=== PATIENT | male | born 1985 | race Caucasian/White ===

== ENCOUNTER 2017-10-11 17:27 | Emergency (ER) | payer SELFPAY ==
[~2017-10-11] VITALS: Ht 165.1 cm; Wt 63.5 kg
[2017-10-11 17:35] VITALS: BP_SYST 115
[2017-10-11] MEDS ORDERED: BACITRACIN 1 GM OINT TP ONE (18:15)
[2017-10-11] MEDS ORDERED: DIPH-TET-PERTUS Vaccine 0.5 ML VIAL (ADACEL) I.M. ONE (18:15)
[2017-10-11 18:50] VITALS: BP_SYST 114
== END 2017-10-11 18:50 ==
LOC: SED 17:27
DX: S01.112A Laceration without foreign body of left eyelid and periocular area, initial encounter (principal); S01.81XA Laceration without foreign body of other part of head, initial encounter; F10.10 Alcohol abuse, uncomplicated; F12.10 Cannabis abuse, uncomplicated; Y04.0XXA Assault by unarmed brawl or fight, initial encounter; Y93.89 Activity, other specified; Y92.89 Other specified places as the place of occurrence of the external cause; Y99.8 Other external cause status
CPT/HCPCS: 70150-TC; 90715; 99284

== ENCOUNTER 2017-10-12 00:53 | Emergency (ER) | payer SELFPAY ==
[~2017-10-12] VITALS: Ht 165.1 cm; Wt 63.5 kg
[2017-10-12 01:05] VITALS: BP_SYST 117
[2017-10-12 01:40] VITALS: BP_SYST 117
== END 2017-10-12 01:40 ==
LOC: SED 00:53
DX: S20.212A Contusion of left front wall of thorax, initial encounter (principal); Y04.0XXA Assault by unarmed brawl or fight, initial encounter; Y93.9 Activity, unspecified; Y92.89 Other specified places as the place of occurrence of the external cause; Y99.8 Other external cause status
CPT/HCPCS: 71045; 71100; 99284